=== PATIENT | male | born 1975 | race African-American/Black ===

== ENCOUNTER 2016-10-08 15:28 | Emergency (ER) | payer OTHER ==
[~2016-10-08] VITALS: Ht 175.3 cm; Wt 78.4 kg
[2016-10-08] MEDS ORDERED: PERCOCET 5/31 TABLET PO (18:37)
[2016-10-08 19:59] VITALS: BP 122/78
== END 2016-10-08 19:59 | disposition home or self-care (01) ==
LOC: EME 15:28
DX: S13.9XXA Sprain of joints and ligaments of unspecified parts of neck, initial encounter (principal); S20.229A Contusion of unspecified back wall of thorax, initial encounter; S09.90XA Unspecified injury of head, initial encounter; W10.9XXA Fall (on) (from) unspecified stairs and steps, initial encounter; J45.909 Unspecified asthma, uncomplicated; Z87.891 Personal history of nicotine dependence
CPT/HCPCS: 70450; 72125; 72128; 72131; 99281; 99284